=== PATIENT | female | born 1970 | race African-American/Black ===

== ENCOUNTER 2017-08-30 13:54 | Emergency (ER) | payer OTHER ==
[2017-08-30 14:03] VITALS: BMI 35.4
--- NOTE | 2017-08-30 16:47 | PDOC ---
History of Present Illness <Anca Meyer - Last Filed: 08/30/17 18:29> - General History Source: Patient - History of Present Illness Initial Comments: 08/30/17 16:42 47 year old female with a PMH of HTN and R sided ovarian cyst presents to our ED c/o 1 week h/o increasingly severe RLQ pain that radiates to her back. Patient states the pain is constant, 10/10 cramping and increases with movement. Patient denies any associated fevers/chills, diarrhea/constipation, nausea/vomiting or dysuria/hematuria. Patient has been tolerating PO intake and states her last bowel movement was earlier this morning and was normal. [facility] Surgical: denies PMD: Dr. Akers <Yuko Mccain - Last Filed: 08/30/17 19:24> - General Chief Complaint: Pain Stated Complaint: RT SIDE PAIN Time Seen by Provider: 08/30/17 15:43 Past History <Anca Meyer - Last Filed: 08/30/17 18:29> - Past Medical History COPD: No HTN: Yes - Suicide/Smoking/Psychosocial Hx Smoking History: Smoker current status UNK Information on smoking cessation initiated: No Hx Alcohol Use: No Drug/Substance Use Hx: No Substance Use Type: None <Yuko Mccain - Last Filed: 08/30/17 19:24> - Past Medical History Allergies/Adverse Reactions: Allergies Allergy/AdvReac Type Severity Reaction Status Date / Time No Known Allergies Allergy Verified 08/30/17 14:03 Home Medications: Ambulatory Orders Losartan/Hydrochlorothiazide [Losartan-Hctz 100-25 mg Tab] 1 each PO DAILY 08/30 *Physical Exam - Vital Signs Last Vital Signs Temp Pulse Resp BP Pulse Ox 97.9 F 70 18 159/102 99 08/30/17 14:01 08/30/17 14:01 08/30/17 14:01 08/30/17 14:01 08/30/17 14:01 <Anca Meyer - Last Filed: 08/30/17 18:29> - Vital Signs Last Vital Signs Temp Pulse Resp BP Pulse Ox 97.9 F 70 18 159/102 99 08/30/17 14:01 08/30/17 14:01 08/30/17 14:01 08/30/17 14:01 08/30/17 14:01 - Physical Exam Comments: 08/30/17 16:52 GENERAL: Patient reports she is 87 kg and 5 feet 2 inches, hirsute, awake, alert , and fully oriented HEAD: No signs of trauma EYES: PERRLA, EOMI, sclera anicteric, conjunctiva clear ENT: Auricles normal inspection, hearing grossly normal, nares patent, oropharynx clear without exudates. Moist mucosa NECK: Nontender, no stepoffs, Normal ROM, supple, no lymphadenopathy, JVD, or masses LUNGS: Breath sounds equal, clear to auscultation bilaterally. No wheezes, and no crackles HEART: Regular rate and rhythm, normal S1 and S2, no murmurs, rubs or gallops ABDOMEN: RLQ TTP, (+) Beauchamp's sign, R flank TPP, (+) peritoneal signs, normoactive bowel sounds. No masses EXTREMITIES: Normal range of motion, no edema. No clubbing or cyanosis. No cords, erythema, or tenderness SKIN: Warm, Dry, normal turgor, no rashes or lesions noted. <Yuko Mccain - Last Filed: 08/30/17 19:24> Procedures - Bedside Ultrasound Bedside Ultrasound: Gallbladder Other: renal ultrasound see attending note for report <Anca Meyer - Last Filed: 08/30/17 18:29> ED Treatment Course - LABORATORY CBC & Chemistry Diagram: 08/30/17 16:42 08/30/17 16:42 - ADDITIONAL ORDERS Additional order review: Laboratory Results 08/30/17 08/30/17 08/30/17 16:42 16:42 16:42 Sodium 139 Potassium 4.0 Chloride 104 Carbon Dioxide 30 Anion Gap 5 L BUN 11 Creatinine 0.8 Creat Clearance w eGFR > 60 Random Glucose 90 Lactic Acid 1.2 Calcium 9.5 Total Bilirubin 0.4 AST 13 L ALT 24 Alkaline Phosphatase 86 Total Protein 7.9 Albumin 4.1 Lipase 155 Urine Color Urine Appearance Urine pH Ur Specific [place] Urine Protein Urine Glucose (UA) Urine Ketones Urine Blood Urine Nitrite Urine Bilirubin Urine Urobilinogen Ur Leukocyte Esterase Urine HCG, Qual 08/30/17 16:42 Sodium Potassium Chloride Carbon Dioxide Anion Gap BUN Creatinine Creat Clearance w eGFR Random Glucose Lactic Acid Calcium Total Bilirubin AST ALT Alkaline Phosphatase Total Protein Albumin Lipase Urine Color Yellow Urine Appearance Clear Urine pH 6.0 Ur Specific [place] 1.025 Urine Protein Negative Urine Glucose (UA) Negative Urine Ketones Negative Urine Blood Negative Urine Nitrite Negative Urine Bilirubin Negative Urine Urobilinogen 4.0 e.u/dl H Ur Leukocyte Esterase Negative Urine HCG, Qual Negative 08/30/17 16:42 RBC 4.50 MCV 92.5 MCHC 34.7 RDW 13.3 MPV 8.6 Neutrophils % No Result Required. Lymphocytes % No Result Required. <Anca Meyer - Last Filed: 08/30/17 18:29> - LABORATORY CBC & Chemistry Diagram: 08/30/17 16:42 08/30/17 16:42 <Yuko Mccain - Last Filed: 08/30/17 19:24> Medical Decision Making - Medical Decision Making 08/30/17 16:48 47 year old female with RLQ abdominal pain that radiates to her flank. Physical exam significant for (+) Beauchamp's sign, RLQ tenderness and R flank pain. DDx includes cholecystitis, appendicitis, ovarian torsion, nephrolithiasis. Patient has SiSx of PCOS on PE. Pelvic exam, TVUS and possible CT. 08/30/17 17:05 Bedside Pelvic exam equivocal - patient had significant generalized tenderness . Will advise patient for outpatient gynecological follow for pelvic pain including reported dyspareunia. Bedside Transabdominal U/S shows no hydronephrosis, normal sized GB, no cholelithiasis, normal sized CBD. 08/30/17 17:52 Patient unable to tolerate TVUS 2/[address] w/PO + IV contrast to evaluate for Appendicitis. If CT equivocal and pending patient's symptomatic presentation can consider transabdominal U/S with full bladder to evaluate for adnexal torsion. Patient counseled on POC. 08/30/17 19:13 Patient signed out to Dr. Mcgraw (Resident) and Dr. Oden (Attending) <Yuko Mccain - Last Filed: 08/30/17 19:24> *DC/Admit/Observation/Transfer <Anca Meyer - Last Filed: 08/30/17 18:29> <Yuko Mccain - Last Filed: 08/30/17 19:24> Diagnosis at time of Disposition: Abdominal pain - Referrals Referrals: Soraida Akers MD [Primary Care Provider] - Lorna Telles MD [Staff Physician] - - Patient Instructions Additional Instructions: Please make a follow-up appointment with Dr. Muñoz OB-ESCROW AGENT for your pelvic pain. - Post Discharge Activity
[2017-08-30 16:52] LABS: HEMATOCRIT 41.6 % (32.4-45.2); HEMOGLOBIN 14.4 GM/dL (10.7-15.3); MCH 32.1 pg (25.7-33.7); MCHC 34.7 g/dl (32.0-36.0); MEAN CELL VOLUME 92.5 fl (80-96); MEAN PLT VOLUME 8.6 fl (7.5-11.1); PLATELET COUNT 261 K/MM3 (134-434); RDW 13.3 % (11.6-15.6); WHITE BLOOD COUNT 5.9 K/mm3 (4.0-10.0)
[2017-08-30 17:03] LABS: URINE APPEARANCE CLEAR; URINE BILIRUBIN NEGATIVE (<2.0 mg/dL); URINE BLOOD NEGATIVE (NEGATIVE); URINE COLOR YELLOW; URINE GLUCOSE (UA) NEGATIVE (NEGATIVE); URINE KETONE NEGATIVE (NEGATIVE); URINE LEUK ESTERASE NEGATIVE (NEGATIVE); URINE NITRITE NEGATIVE (NEGATIVE); URINE PROTEIN NEGATIVE (NEGATIVE); URINE UROBILINOGEN 4.0 E.U/dl mg/dL (0.2-1.0)
[2017-08-30 17:09] LABS: HCG,QUALITATIVE URINE NEGATIVE
[2017-08-30 17:16] LABS: ALBUMIN 4.1 g/dl (3.4-5.0); ALK PHOS 86 U/L (45-117); ANION GAP 5 (8-16); BILIRUBIN,TOTAL 0.4 mg/dL (0.2-1.0); BLOOD UREA NITROGEN 11 mg/dL (7-18); CALCIUM 9.5 mg/dL (8.5-10.1); CHLORIDE 104 mmol/L (98-107); CO2 30 mmol/L (21-32); CREATININE 0.8 mg/dL (0.55-1.02); GLUCOSE,RANDOM 90 mg/dL (74-106); SGOT/AST 13 U/L (15-37); SGPT/ALT 24 U/L (12-78); SODIUM 139 mmol/L (136-145); TOT PROT 7.9 g/dl (6.4-8.2)
[2017-08-30] MEDS ORDERED: KETOROLAC TROMETHAMINE 30 MG/1 ML VIAL IVPUSH ONE ×2 (18:21→23:38)
--- NOTE | 2017-08-30 18:29 | PDOC ---
Attending Attestation - Resident Resident Name: Yuko Mccain - ED Attending Attestation I have performed the following: I have examined & evaluated the patient, The case was reviewed & discussed with the resident, I agree w/resident's findings & plan, Exceptions are as noted - HPI HPI: 08/30/17 18:25 47-year-old female with a history of ovarian cysts here today with right lower quadrant pain radiating to the back started 1 week ago no nausea no vomiting pain is sharp and intermittent similar to prior ovarian cysts no urinary complaints no fevers or chills - Physicial Exam PE: 08/30/17 18:25 Awake alert no acute distress lungs are clear bilaterally heart is regular no murmurs rubs or gallops abdomen is soft patient does have right lower quadrant tenderness to palpation no rebound no guarding no CVA tenderness. Pelvic was done per Dr. Mccain right adnexal tenderness. Neuro awake and alert moves all extremities skin is warm and dry no rash - Medical Decision Making Differential diagnosis includes renal colic, biliary colic, ovarian cyst or torsion, plan bedside renal ultrasound followed by transvaginal ultrasound blood appendicitis UA and basic labs pain control Focused ED ultrasound the right her primary reveals a normal gallbladder no biliary stones, a normal common bile duct measuring 3.6 mm. Anterior gallbladder wall with no edema no pericholecystic fluid measuring 1.8 mm. Negative sonographic Beauchamp sign Impression normal gallbladder ultrasound Focused ED ultrasound of bilateral kidneys indication right lower quadrant pain Bilateral kidneys and into planes the right kidney measures 9 point centimeters left kidney was 9.8 cm in length no hydronephrosis bilaterally. The bladder was nondistended there is a questionable right adnexal cyst but difficult to see due to patient's body habitus impression normal renal ultrasound no hydronephrosis Plan perform CT abdomen and pelvis to rule out appendicitis as well as transvaginal ultrasound get a better view of the right ovary08/30/17 18:26
[2017-08-30] MEDS ORDERED: KETOROLAC TROMETHAMINE 30 MG/1 ML VIAL ONE ×2 (18:51→23:50)
--- NOTE | 2017-08-30 19:18 | PDOC ---
*Physical Exam - Vital Signs Last Vital Signs Temp Pulse Resp BP Pulse Ox 97.9 F 70 18 159/102 99 08/30/17 14:01 08/30/17 14:01 08/30/17 14:01 08/30/17 14:01 08/30/17 14:01 ED Treatment Course - LABORATORY CBC & Chemistry Diagram: 08/30/17 16:42 08/30/17 16:42 - ADDITIONAL ORDERS Additional order review: Laboratory Results 08/30/17 08/30/17 08/30/17 16:42 16:42 16:42 Sodium 139 Potassium 4.0 Chloride 104 Carbon Dioxide 30 Anion Gap 5 L BUN 11 Creatinine 0.8 Creat Clearance w eGFR > 60 Random Glucose 90 Lactic Acid 1.2 Calcium 9.5 Total Bilirubin 0.4 AST 13 L ALT 24 Alkaline Phosphatase 86 Total Protein 7.9 Albumin 4.1 Lipase 155 Urine Color Urine Appearance Urine pH Ur Specific [place] Urine Protein Urine Glucose (UA) Urine Ketones Urine Blood Urine Nitrite Urine Bilirubin Urine Urobilinogen Ur Leukocyte Esterase Urine HCG, Qual 08/30/17 16:42 Sodium Potassium Chloride Carbon Dioxide Anion Gap BUN Creatinine Creat Clearance w eGFR Random Glucose Lactic Acid Calcium Total Bilirubin AST ALT Alkaline Phosphatase Total Protein Albumin Lipase Urine Color Yellow Urine Appearance Clear Urine pH 6.0 Ur Specific [place] 1.025 Urine Protein Negative Urine Glucose (UA) Negative Urine Ketones Negative Urine Blood Negative Urine Nitrite Negative Urine Bilirubin Negative Urine Urobilinogen 4.0 e.u/dl H Ur Leukocyte Esterase Negative Urine HCG, Qual Negative 08/30/17 16:42 RBC 4.50 MCV 92.5 MCHC 34.7 RDW 13.3 MPV 8.6 Neutrophils % No Result Required. Lymphocytes % No Result Required. - Medications Given in the ED: ED Medications Discontinued Medications Generic Name Dose Route Start Last Admin Trade Name Freq PRN Reason Stop Dose Admin Ketorolac Tromethamine 30 mg 08/30/17 18:21 08/30/17 19:01 Toradol Injection - IVPUSH 08/30/17 18:22 30 mg ONCE ONE Administration Medical Decision Making - Medical Decision Making 08/30/17 19:16 The patient was signed out to me by Dr. Mccain, day team. The patient is a 47F who presented with RLQ pain. Pt states she feels better after receiving toradol. Pt is currently drinking oral contrast for oral and IV contrast CT. Will monitor closely. 08/30/17 23:12 CT negative for acute pathology. Pt will go for transabdominal U/S. Pt states her pain is now in her L flank and 5-6/10, down from an initial 8-9/10. 08/30/17 23:32 Trans-abdominal u/s is negative. I have informed the patient of the importance of follow up and answered all of her questions. Will order repeat pain medication and d/c the patient. *DC/Admit/Observation/Transfer Diagnosis at time of Disposition: Abdominal pain Qualifiers: Abdominal location: generalized Qualified Code(s): R10.84 - Generalized abdominal pain - Discharge Dispostion Disposition: HOME Condition at time of disposition: Stable Admit: No - Referrals Referrals: Soraida Akers MD [Primary Care Provider] - Lorna Telles MD [Staff Physician] - - Patient Instructions Printed Discharge Instructions: DI for Abdominal Pain-Adult Additional Instructions: Please make a follow-up appointment with Dr. Muñoz OB-CLINICAL TRANSPLANT COORDINATOR for your pelvic pain. Please return to the ER if you have any signs or symptoms of chest pain, shortness of breath, uncontrollable fever, chills, nausea, vomiting, numbness, tingling, or weakness in any part of your body, changes in vision, or slurred speech. Please follow up with your primary care physician in 2-3 days. Please return to the ER if symptoms persist, worsen, or new symptoms arise. - Post Discharge Activity
[2017-08-30 19:31] VITALS: BP 149/101; PULSE 64; TEMP 97.8
== END 2017-08-31 00:05 | disposition home or self-care (01) ==
LOC: JER 13:54
PROC: 3E0333Z Introduction of Anti-inflammatory into Peripheral Vein, Percutaneous Approach (ICD-10-PCS; principal; 2017-08-30)
DX: R10.9 Unspecified abdominal pain (principal)
CPT/HCPCS: 36415; 74177-TC; 76830-TC; 76856-TC; 80053; 81003; 83605; 83690; 84703; 85025; 87086; 99284-25